=== PATIENT | female | born 1980 | race Hispanic/Latino ===

== ENCOUNTER 2022-02-23 12:38 | Outpatient (CLI) | payer BC | END 2022-02-23 12:39 | disposition home or self-care (01) | LOC: BICMAMMO 12:38 | PROVIDERS: ATTEND Physician Assistant | DX: N64.4 Mastodynia (principal) | CPT/HCPCS: 77066; G0279 ==

== ENCOUNTER 2022-02-23 14:35 | Outpatient (CLI) | payer BC | END 2022-02-23 14:36 | disposition home or self-care (01) | LOC: ULT 14:35 | PROVIDERS: ATTEND Physician Assistant | DX: I08.1 Rheumatic disorders of both mitral and tricuspid valves (principal) | CPT/HCPCS: 93306 ==

== ENCOUNTER 2023-02-28 08:44 | Outpatient (CLI) | payer BC | END 2023-02-28 08:45 | disposition home or self-care (01) | LOC: BICMAMMO 08:44 | PROVIDERS: ATTEND Student in an Organized Health Care Education/Training Program | DX: N63.20 Unspecified lump in the left breast, unspecified quadrant (principal) | CPT/HCPCS: 77066; G0279 ==

== ENCOUNTER 2023-05-23 15:51 | Observation (INO) | payer BC ==
[2023-05-23 17:24] LABS: Bacteria/HPF None Seen HPF (None Seen); Bilirubin Negative (Negative); Blood, Urine Negative (Negative); CAUTI Indications for Culture Alt mental st,lethar; Clarity Clear (Clear); Glucose, Urine (Dipstick) Normal (Negative); Ketone, Urine 10 mg/dL (Negative); Leukocyte Negative Leu/uL (Negative); Nitrite Negative (Negative); Protein, Urine (Dipstick) Negative (Neg-Trace); RBC/HPF None Seen HPF (0-3); Specific Gravity, Urine 1.005 (1.002-1.036); Squamous Epithelial 0-3 HPF (0-3); Urobilinogen Normal mg/dL (Less than 2); WBC/HPF 0-3 HPF (0-3); pH, Urine 6.5 (5.0-9.0)
[2023-05-23 17:37] LABS: Urine Culture Reflex No No
[2023-05-23 17:38] LABS: Amphetamine Not Detected (NotDetected); Barbiturates Screen Not Detected (NotDetected); Benzodiazepine Screen Not Detected (NotDetected); Cocaine Metabolite Screen Not Detected (NotDetected); Methadone Not Detected (NotDetected); Methamphetamine Not Detected (NotDetected); Opiate Screen Not Detected (NotDetected); Oxycodone Screen Not Detected (NotDetected); Phencyclidine (PCP) Not Detected (NotDetected); THC/Cannabinoid Screen Not Detected (NotDetected); Tricyclic Screen Not Detected (NotDetected)
[2023-05-23 18:14] LABS: #Monocytes 0.5 thou/uL (0.11-0.59); #Neutrophils 9.8 thou/uL (1.40-6.50); %Basophils 0.3 % (0.0-1.0); %Eosinophils 0.3 % (0.0-10.0); %Lymphocytes 10.8 % (21.0-51.0); %Neutrophils 84.3 % (42.0-75.0); Hematocrit 41.9 % (36.0-47.0); Hemoglobin 13.9 g/dL (12.0-16.0); Mean Corpuscular HGB CONC 33.2 g/dL (32.0-36.0); Mean Corpuscular Hemoglobin 30.3 pg (27.0-31.0); Mean Corpuscular Volume 91.3 fl (78.0-98.0); Mean Platelet Volume 10.7 fL (7.4-10.4); Platelet Count 358 10x3/uL (130-400); RBC Distribution Width 12.5 % (11.5-14.5); Red Blood Cell (RBC) Count 4.59 mill/uL (4.20-5.40); White Blood Cell (WBC) Count 11.6 10x3/uL (4.8-10.8)
[2023-05-23 18:27] LABS: BHCG - Serum Negative (NEGATIVE); Pregs Control Background? CLEAR/WHITE (CLR/WHITE); Pregs Control Bar Appear? YES (CONTROL BAR)
[2023-05-23 18:40] LABS: Acetaminophen Less than 10 mcg/mL (10.0-30.0); Alcohol Less than 10.0 mg/dL (Less than 10); Magnesium 1.9 mg/dL (1.6-2.6); Salicylate Less than 8.0 mg/dL (15.0-30.0)
[2023-05-23 18:41] LABS: ALT (SGPT) 15 U/L (8-55); AST (SGOT) 21 U/L (5-34); Albumin 4.9 g/dL (3.5-5.0); Alkaline Phosphatase 71 U/L (40-110); Anion Gap 16 mmol/L (10-20); BUN (Urea Nitrogen) 10 mg/dL (7.0-18.7); Bilirubin, Total 0.5 mg/dL (0.2-1.2); Calc. Creatinine Clearance 0 mL/min (70-130); Calcium 9.8 mg/dL (7.8-10.44); Carbon Dioxide 20 mmol/L (22-29); Chloride 107 mmol/L (98-107); Estimated GFR 93; Globulin 2.9 g/dL (2.4-3.5); Glucose 96 mg/dL (70-105); Potassium 3.8 mmol/L (3.5-5.1); Protein, Total 7.8 g/dL (6.0-8.3); Sodium 139 mmol/L (136-145)
[2023-05-23 18:44] LABS: Troponin I Less than 0.010 ng/mL (< 0.028)
[2023-05-23] MEDS ORDERED: Metoprolol Tartrate 5 MG/5 ML VIAL IVP PRN (21:46)
[2023-05-23] MEDS ORDERED: Acetaminophen 325 MG TAB PO PRN (21:50)
[2023-05-23] MEDS ORDERED: Acetaminophen 650 MG Suppository PR PRN (21:50)
[2023-05-23] MEDS ORDERED: Magnesium Sulfate In Water 4 GM in Premix 1 BAG IVPB SCH (22:00)
[2023-05-23] MEDS ORDERED: Potassium Chloride 20 MEQ TAB PO SCH (22:00)
[2023-05-23] MEDS ORDERED: Electrolyte Replacement Protocol 1 EACH FS PRN (22:00)
[2023-05-24] MEDS ORDERED: Potassium Chloride 20 MEQ TAB ONE (00:45)
[2023-05-24 05:30] LABS: #Eosinphils 0.2 thou/uL (0.0-0.7); #Monocytes 0.7 thou/uL (0.11-0.59); #Neutrophils 6.8 thou/uL (1.40-6.50); %Basophils 0.2 % (0.0-1.0); %Eosinophils 1.5 % (0.0-10.0); %Lymphocytes 21.9 % (21.0-51.0); %Monocytes 7.4 % (0.0-10.0); %Neutrophils 68.7 % (42.0-75.0); Hematocrit 37.5 % (36.0-47.0); Hemoglobin 12.6 g/dL (12.0-16.0); Mean Corpuscular HGB CONC 33.6 g/dL (32.0-36.0); Mean Corpuscular Hemoglobin 30.5 pg (27.0-31.0); Mean Corpuscular Volume 90.8 fl (78.0-98.0); Mean Platelet Volume 10.7 fL (7.4-10.4); Platelet Count 320 10x3/uL (130-400); RBC Distribution Width 12.7 % (11.5-14.5); Red Blood Cell (RBC) Count 4.13 mill/uL (4.20-5.40); White Blood Cell (WBC) Count 9.9 10x3/uL (4.8-10.8)
[2023-05-24 05:51] LABS: Anion Gap 11 mmol/L (10-20); BUN (Urea Nitrogen) 6 mg/dL (7.0-18.7); Calc. Creatinine Clearance 98 mL/min (70-130); Calcium 8.4 mg/dL (7.8-10.44); Carbon Dioxide 21 mmol/L (22-29); Chloride 111 mmol/L (98-107); Estimated GFR 110; Glucose 90 mg/dL (70-105); Potassium 4.2 mmol/L (3.5-5.1); Sodium 139 mmol/L (136-145)
[2023-05-24 07:58] VITALS: BMI 29.1
[2023-05-24] MEDS ORDERED: Acetaminophen 325 MG TAB ONE (11:16)
[2023-05-24 16:15] LABS: Ref Lab Test Ordered LQTSG PNL
[2023-05-25 11:52] VITALS: BP 115/82; TEMP 98
== END 2023-05-25 11:46 | disposition home or self-care (01) ==
LOC: ERS 15:51 → 2SW 20:49 → ERHOLD 20:54 → 2SW 05-24 13:07
PROVIDERS: ADMIT Student in an Organized Health Care Education/Training Program; ATTEND Internal Medicine
DX: R00.2 Palpitations (principal); I08.1 Rheumatic disorders of both mitral and tricuspid valves; I45.81 Long QT syndrome; R00.1 Bradycardia, unspecified; E87.6 Hypokalemia; E83.42 Hypomagnesemia; Z85.3 Personal history of malignant neoplasm of breast; Z91.041 Radiographic dye allergy status; Z79.82 Long term (current) use of aspirin; Z79.899 Other long term (current) drug therapy
CPT/HCPCS: 36415; 71046; 80048; 80053; 80306; 80307; 81001; 83735; 84443; 84484; 84703; 85025; 85379; 93005; 93010; 96374; G0378; J3475

== ENCOUNTER 2023-06-01 14:31 | Emergency (ER) | payer BC ==
[2023-06-01] MEDS ORDERED: LORazepam 2 MG/ML SYR.(CARPUJECT) ONE ×2 (15:05→16:24)
[2023-06-01 15:28] LABS: #Eosinphils 0.2 thou/uL (0.0-0.7); #Monocytes 0.6 thou/uL (0.11-0.59); #Neutrophils 5.8 thou/uL (1.40-6.50); %Basophils 0.2 % (0.0-1.0); %Lymphocytes 29.7 % (21.0-51.0); %Monocytes 6.3 % (0.0-10.0); %Neutrophils 61.7 % (42.0-75.0); Hematocrit 41.8 % (36.0-47.0); Hemoglobin 14.7 g/dL (12.0-16.0); Mean Corpuscular HGB CONC 35.2 g/dL (32.0-36.0); Mean Corpuscular Hemoglobin 30.9 pg (27.0-31.0); Mean Platelet Volume 11.3 fL (7.4-10.4); Platelet Count 386 10x3/uL (130-400); RBC Distribution Width 12.3 % (11.5-14.5); Red Blood Cell (RBC) Count 4.75 mill/uL (4.20-5.40); White Blood Cell (WBC) Count 9.5 10x3/uL (4.8-10.8)
[2023-06-01 15:47] LABS: BHCG - Serum Negative (NEGATIVE); Pregs Control Background? CLEAR/WHITE (CLR/WHITE); Pregs Control Bar Appear? YES (CONTROL BAR)
[2023-06-01 15:59] LABS: Troponin I Less than 0.010 ng/mL (< 0.028)
== END 2023-06-01 16:31 | disposition home or self-care (01) ==
LOC: ERS 14:31
DX: R00.2 Palpitations (principal)
CPT/HCPCS: 84484; 84703; 85025; 93005; 96374; 96376; J2060

== ENCOUNTER 2023-08-01 08:33 | Outpatient (CLI) | payer BC | END 2023-08-01 08:34 | disposition home or self-care (01) | LOC: SCSMRI 08:33 | PROVIDERS: ATTEND Physician Assistant Medical | DX: K80.20 Calculus of gallbladder without cholecystitis without obstruction (principal); R79.89 Other specified abnormal findings of blood chemistry | CPT/HCPCS: 74181 ==

== ENCOUNTER 2023-08-11 08:23 | Day surgery (SDC) | payer BC ==
[2023-08-08 08:50] VITALS: BMI 25.3
[2023-08-11] MEDS ORDERED: EPINEPHrine 1 MG/ML VIAL ONE (09:43)
[2023-08-11] MEDS ORDERED: Bupivacaine 0.25% HCL 30 ML VIAL ONE (09:43)
[2023-08-11] MEDS ORDERED: Midazolam HCl 2 mg/2 ml Vial ONE ×2 (10:02→10:05)
[2023-08-11] MEDS ORDERED: PROPOFOL 20 ML ONE (10:04)
[2023-08-11] MEDS ORDERED: fentaNYL PF 100 MCG/2 ML SYRINGE ONE (10:04)
[2023-08-11] MEDS ORDERED: Rocuronium Bromide 10 MG/ML (10ML VIAL) ONE (10:05)
[2023-08-11] MEDS ORDERED: Dexamethasone 20 MG/5 ML VIAL ONE (10:05)
[2023-08-11] MEDS ORDERED: Ondansetron PF 4 MG/2 ML Vial ONE ×2 (10:05→11:28)
[2023-08-11] MEDS ORDERED: Lidocaine 1% PF 5 ML VIAL ONE (10:05)
[2023-08-11] MEDS ORDERED: Sodium Chloride 0.9% 100 ML ONE (10:11)
[2023-08-11] MEDS ORDERED: cefOXitin 2 GM VIAL ONE (10:11)
[2023-08-11] MEDS ORDERED: PHENYLEPHRINE-NS 100 MCG/ML 10 ML SYRINGE ONE (10:37)
[2023-08-11] MEDS ORDERED: SUGAMMADEX SODIUM 200 MG/2 ML VIAL ONE (11:02)
[2023-08-11] MEDS ORDERED: Ketorolac Tromethamine 30 MG (1 mL) VIAL ONE (11:14)
[2023-08-11] MEDS ORDERED: fentaNYL 50 mcg/mL 1 mL Vial ONE ×2 (11:39→11:48)
[2023-08-11] MEDS ORDERED: HYDROcodone/Acetaminophen 5/325 mg Tablet ONE (13:05)
== END 2023-08-11 13:25 | disposition home or self-care (01) ==
LOC: SDC 08:23
PROVIDERS: ATTEND Surgery
PROC: 0FT44ZZ Resection of Gallbladder, Percutaneous Endoscopic Approach (ICD-10-PCS; principal; 2023-08-11)
DX: K80.10 Calculus of gallbladder with chronic cholecystitis without obstruction (principal); H91.90 Unspecified hearing loss, unspecified ear; I34.1 Nonrheumatic mitral (valve) prolapse; Z98.51 Tubal ligation status; Z87.59 Personal history of other complications of pregnancy, childbirth and the puerperium; Z79.899 Other long term (current) drug therapy; Z91.041 Radiographic dye allergy status
CPT/HCPCS: 88304; C1776; J0171; J0694; J1100; J1885; J2250; J2405; J2704; J3010; J3490; S0020

== ENCOUNTER 2024-03-19 11:40 | Outpatient (CLI) | payer BC | END 2024-03-19 11:41 | disposition home or self-care (01) | LOC: RAD 11:40 | PROVIDERS: ATTEND Internal Medicine Cardiovascular Disease | DX: R94.31 Abnormal electrocardiogram [ECG] [EKG] (principal) | CPT/HCPCS: 71046 ==

== ENCOUNTER 2024-06-12 16:57 | Emergency (ER) | payer BC ==
[2024-06-12 17:43] LABS: #Basophils 0.04 10x3/uL (0.0-0.2); %Basophils 0.3 % (0.0-1.0); %Eosinophils 0.7 % (0.0-10.0); %Lymphocytes 24.6 % (21.0-51.0); %Monocytes 6.4 % (0.0-10.0); %Neutrophils 67.7 % (42.0-75.0); Hematocrit 48.4 % (36.0-47.0); Hemoglobin 17.2 g/dL (12.0-16.0); Mean Corpuscular HGB CONC 35.5 g/dL (32.0-36.0); Mean Corpuscular Hemoglobin 31.2 pg (27.0-31.0); Mean Corpuscular Volume 87.7 fL (78.0-98.0); Mean Platelet Volume 11.5 fL (7.4-10.4); Platelet Count 306 10x3/uL (130-400); RBC Distribution Width 12.9 % (11.5-14.5); Red Blood Cell (RBC) Count 5.52 mill/uL (4.20-5.40)
[2024-06-12 18:24] LABS: ALT (SGPT) 28 U/L (8-55); AST (SGOT) 27 U/L (5-34); Albumin 4.5 g/dL (3.5-5.0); Alkaline Phosphatase 74 U/L (40-110); Anion Gap 15 mmol/L (10-20); BUN (Urea Nitrogen) 12 mg/dL (7.0-18.7); Bilirubin, Total 1.2 mg/dL (0.2-1.2); Calc. Creatinine Clearance 0 mL/min (70-130); Calcium 9.8 mg/dL (7.8-10.44); Carbon Dioxide 18 mmol/L (22-29); Chloride 108 mmol/L (98-107); Estimated GFR 80; Globulin 3.6 g/dL (2.4-3.5); Glucose 89 mg/dL (70-105); Magnesium 2.1 mg/dL (1.6-2.6); Protein, Total 8.1 g/dL (6.0-8.3); Sodium 137 mmol/L (136-145)
[2024-06-12] MEDS ORDERED: Midazolam HCl 2 mg/2 ml Vial ONE (19:19)
== END 2024-06-13 02:06 | disposition short-term general hospital (02) ==
LOC: ERS 16:57
DX: R06.02 Shortness of breath (principal); R00.0 Tachycardia, unspecified
CPT/HCPCS: 71045; 71275; 80053; 83735; 83880; 84484; 85025; 85379; 93005; 96374; J2250

== ENCOUNTER 2024-06-19 07:09 | Emergency (ER) | payer BC ==
[2024-06-19 07:36] LABS: #Basophils 0.04 10x3/uL (0.0-0.2); %Basophils 0.4 % (0.0-1.0); %Eosinophils 2.1 % (0.0-10.0); %Lymphocytes 29.5 % (21.0-51.0); %Monocytes 6.4 % (0.0-10.0); %Neutrophils 61.4 % (42.0-75.0); Hematocrit 39.2 % (36.0-47.0); Hemoglobin 14.3 g/dL (12.0-16.0); Mean Corpuscular HGB CONC 36.5 g/dL (32.0-36.0); Mean Corpuscular Volume 87.7 fL (78.0-98.0); Mean Platelet Volume 11.6 fL (7.4-10.4); Platelet Count 201 10x3/uL (130-400); RBC Distribution Width 12.7 % (11.5-14.5); Red Blood Cell (RBC) Count 4.47 mill/uL (4.20-5.40)
[2024-06-19 07:58] LABS: ALT (SGPT) 22 U/L (8-55); AST (SGOT) 33 U/L (5-34); Albumin 3.7 g/dL (3.5-5.0); Alkaline Phosphatase 56 U/L (40-110); Anion Gap 15 mmol/L (10-20); BUN (Urea Nitrogen) 16 mg/dL (7.0-18.7); Bilirubin, Total 0.7 mg/dL (0.2-1.2); Calc. Creatinine Clearance 0 mL/min (70-130); Calcium 8.9 mg/dL (7.8-10.44); Carbon Dioxide 16 mmol/L (22-29); Chloride 110 mmol/L (98-107); Estimated GFR 78; Globulin 2.8 g/dL (2.4-3.5); Glucose 105 mg/dL (70-105); Potassium 3.5 mmol/L (3.5-5.1); Protein, Total 6.5 g/dL (6.0-8.3); Sodium 137 mmol/L (136-145)
[2024-06-19 08:03] LABS: Troponin I Less than 0.010 ng/mL (< 0.028)
== END 2024-06-19 16:51 | disposition short-term general hospital (02) ==
LOC: ERS 07:09
DX: I27.20 Pulmonary hypertension, unspecified (principal); R55 Syncope and collapse; Z55.0 Illiteracy and low-level literacy
CPT/HCPCS: 71045; 80053; 83880; 84484; 85025; 93005

== ENCOUNTER 2025-04-15 15:50 | Outpatient (CLI) | payer BC | END 2025-04-15 15:51 | disposition home or self-care (01) | LOC: BICMAMMO 15:50 | PROVIDERS: ATTEND Nurse Practitioner Family | DX: Z12.31 Encounter for screening mammogram for malignant neoplasm of breast (principal); Z91.89 Other specified personal risk factors, not elsewhere classified | CPT/HCPCS: 77063; 77067 ==